=== PATIENT | male | born 1995 | race Caucasian/White ===

== ENCOUNTER 2019-01-28 11:56 | Emergency (ER) | payer SELFPAY ==
[2019-01-28 12:02] VITALS: RESP 16
[2019-01-28] MEDS ORDERED: SODIUM CHLORIDE 0.9% 1,000 ML IV STA (12:40)
[2019-01-28 13:54] LABS: Appearance,Urine Clear (Clear); Bilirubin,Urine Negative (Negative); Blood,Urine Negative (Negative); Color,Urine Yellow; Glucose,Urine (UA) Negative (Negative); Ketones,Urine Trace (Negative); Leukocyte Esterase,Urine Negative (Negative); Nitrite,Urine Negative (Negative); PH, Urine 7.5 (5.0-8.0); Protein,Urine Negative (Negative); Specific Gravity,Urine 1.025 (1.001-1.035); Urobilinogen,Urine <2.0 mg/dL (<2.0)
[2019-01-28 14:00] LABS: ALT 16 U/L (21-72); AST 13 U/L (17-59); Albumin 4.6 g/dL (3.5-5.0); Alkaline Phosphatase 43 U/L (38-126); Amylase 46 U/L (30-110); Anion Gap 7 mmol/L; Basophils # (A) 0.1 k/uL (0-0.2); Basophils % (A) 1 %; Blood Urea Nitrogen 10 mg/dL (9-20); Calcium 9.9 mg/dL (8.4-10.2); Carbon Dioxide 27 mmol/L (22-30); Chloride 107 mmol/L (98-107); Eosinophils # (A) 0.5 k/uL (0-0.7); Eosinophils % (A) 8 %; Glucose 91 mg/dL (74-99); HCT 47.3 % (39.0-53.0); HGB 15.8 gm/dL (13.0-17.5); Lipase 44 U/L (23-300); Lymphocytes # (A) 1.8 k/uL (1.0-4.8); Lymphocytes % (A) 29 %; MCH 31.2 pg (25.0-35.0); MCHC 33.5 g/dL (31.0-37.0); Mean Platelet Volume 7.3; Monocytes # (A) 0.3 k/uL (0-1.0); Monocytes % (A) 5 %; Neutrophils # (A) 3.5 k/uL (1.3-7.7); Neutrophils % (A) 55 %; Platelet Count 196 k/uL (150-450); Potassium 4.2 mmol/L (3.5-5.1); RBC 5.08 m/uL (4.30-5.90); RDW 12.5 % (11.5-15.5); Sodium 141 mmol/L (137-145); Total Bilirubin 1.2 mg/dL (0.2-1.3); WBC 6.3 k/uL (3.8-10.6)
[2019-01-28 14:47] VITALS: TEMP 98.1
--- NOTE | 2019-01-28 15:10 | ED ---
General Adult HPI - General Chief complaint: Abdominal Pain Stated complaint: Dizzy, Abd Pain Time Seen by Provider: 01/28/19 12:32 Source: patient, RN notes reviewed Mode of arrival: ambulatory Limitations: no limitations - History of Present Illness Initial comments: 23 -year-old male without any significant past medical history presents to the emergency department for a chief complaint of abdominal cramping and diarrhea. Patient states that he had some abdominal cramping earlier today as well as a few episodes of diarrhea. Denies any sharp or persistent pain. States the cramping has since improved. States he was nauseous but did not vomit. Patient states he did eat fast food yesterday could have had something bad. Patient denies fevers. Patient states he also felt a little lightheaded over the past few days. States this only occurs when going from a sitting to standing position. Patient has no other complaints at this time including shortness of breath, chest pain, abdominal pain, nausea or vomiting, headache, or visual changes. - Related Data Home Medications Medication Instructions Recorded Confirmed No Known Home Medications 01/28/19 01/28/19 Allergies Allergy/AdvReac Type Severity Reaction Status Date / Time No Known Allergies Allergy Verified 01/28/19 12:22 Review of Systems ROS Statement: Those systems with pertinent positive or pertinent negative responses have been documented in the HPI. ROS Other: All systems not noted in ROS Statement are negative. Past Medical History Past Medical History: No Reported History History of Any Multi-Drug Resistant Organisms: None Reported Past Surgical History: No Surgical Hx Reported Past Psychological History: No Psychological Hx Reported Smoking Status: Current some day smoker Past Alcohol Use History: Occasional Past Drug Use History: Marijuana General Exam Limitations: no limitations General appearance: alert, in no apparent distress Head exam: Present: atraumatic, normocephalic, normal inspection Eye exam: Present: normal appearance, PERRL, EOMI. Absent: scleral icterus, conjunctival injection, periorbital swelling ENT exam: Present: normal exam, mucous membranes moist Neck exam: Present: normal inspection. Absent: tenderness, meningismus, lymphadenopathy Respiratory exam: Present: normal lung sounds bilaterally. Absent: respiratory distress, wheezes, rales, rhonchi, stridor Cardiovascular Exam: Present: regular rate, normal rhythm, normal heart sounds. Absent: systolic murmur, diastolic murmur, rubs, gallop, clicks GI/Abdominal exam: Present: soft, normal bowel sounds. Absent: distended, tenderness (No abdominal tenderness whatsoever), guarding, rebound, rigid Neurological exam: Present: alert, oriented X3, CN II-XII intact Psychiatric exam: Present: normal affect, normal mood Course Vital Signs 01/28/19 01/28/19 12:00 14:44 Temperature 97.8 F 98.1 F Pulse Rate 72 58 L Respiratory 16 16 Rate Blood Pressure 134/68 125/72 O2 Sat by Pulse 100 98 Oximetry EKG Findings - EKG Comments: EKG Findings:: Sinus bradycardia, ventricular rate 49, FL interval 124, QRS duration 102, QTC 375 Medical Decision Making - Medical Decision Making 23-year-old male presents to the emergency department for a chief complaint of abdominal cramping and diarrhea. States this has been ongoing since this morning. States cramping as since resolved. Admits to nausea, denies vomiting. On exam no abdominal tenderness whatsoever. Patient is well-appearing, sitting up in bed. Exam is generally unremarkable. CBC and CMP that showed any abnormalities. Urine negative for infection. Patient reevaluated, requesting discharge. Patient does request a work note. Patient likely has a viral gastroenteritis. Patient will follow up with primary care and drink plenty of fluids. He'll return here if he has any worsening symptoms. - Lab Data Result diagrams: 01/28/19 13:35 01/28/19 13:35 Lab Results 01/28/19 01/28/19 01/28/19 Range/Units 13:35 13:35 13:35 WBC 6.3 (3.8-10.6) k/uL RBC 5.08 (4.30-5.90) m/uL Hgb 15.8 (13.0-17.5) gm/dL Hct 47.3 (39.0-53.0) % MCV 93.0 (80.0-100.0) fL MCH 31.2 (25.0-35.0) pg MCHC 33.5 (31.0-37.0) g/dL RDW 12.5 (11.5-15.5) % Plt Count 196 (150-450) k/uL Neutrophils % 55 % Lymphocytes % 29 % Monocytes % 5 % Eosinophils % 8 % Basophils % 1 % Neutrophils # 3.5 (1.3-7.7) k/uL Lymphocytes # 1.8 (1.0-4.8) k/uL Monocytes # 0.3 (0-1.0) k/uL Eosinophils # 0.5 (0-0.7) k/uL Basophils # 0.1 (0-0.2) k/uL Sodium 141 (137-145) mmol/L Potassium 4.2 (3.5-5.1) mmol/L Chloride 107 (98-107) mmol/L Carbon Dioxide 27 (22-30) mmol/L Anion Gap 7 mmol/L BUN 10 (9-20) mg/dL Creatinine 0.92 (0.66-1.25) mg/dL Est GFR (CKD-EPI)AfAm >90 (>60 ml/min/1.73 sqM) Est GFR (CKD-EPI)NonAf >90 (>60 ml/min/1.73 sqM) Glucose 91 (74-99) mg/dL Calcium 9.9 (8.4-10.2) mg/dL Total Bilirubin 1.2 (0.2-1.3) mg/dL AST 13 L (17-59) U/L ALT 16 L (21-72) U/L Alkaline Phosphatase 43 (38-126) U/L Total Protein 7.0 (6.3-8.2) g/dL Albumin 4.6 (3.5-5.0) g/dL Amylase 46 (30-110) U/L Lipase 44 (23-300) U/L Urine Color Yellow Urine Appearance Clear (Clear) Urine pH 7.5 (5.0-8.0) Ur Specific [place] 1.025 (1.001-1.035) Urine Protein Negative (Negative) Urine Glucose (UA) Negative (Negative) Urine Ketones Trace H (Negative) Urine Blood Negative (Negative) Urine Nitrite Negative (Negative) Urine Bilirubin Negative (Negative) Urine Urobilinogen <2.0 (<2.0) mg/dL Ur Leukocyte Esterase Negative (Negative) Disposition Clinical Impression: Diarrhea Disposition: HOME SELF-CARE Condition: Good Instructions (If sedation given, give patient instructions): Acute Diarrhea (ED), Gastroenteritis (ED) Additional Instructions: Drink plenty of fluids. Follow-up with primary care in 1-2 days. Return here to the emergency Department if you're having any worsening symptoms or abdominal pain. Is patient prescribed a controlled substance at d/c from ED?: No Referrals: Aarti Braswell MD [STAFF PHYSICIAN] - 1-2 days Time of Disposition: 15:09
[2019-01-28 15:47] VITALS: BP 112/75; PULSE 60
== END 2019-01-28 15:39 | disposition home or self-care (01) ==
LOC: EC 11:56
DX: R19.7 Diarrhea, unspecified (principal); R10.9 Unspecified abdominal pain; R11.0 Nausea; F17.200 Nicotine dependence, unspecified, uncomplicated
CPT/HCPCS: 36415; 80053; 81003; 82150; 83690; 85025; 96360; 99284